=== PATIENT | female | born 2000 | race Hispanic/Latino ===

== ENCOUNTER 2021-08-31 23:00 | Emergency (ER) | payer OTHER ==
[~2021-08-31] VITALS: Ht 152.4 cm; Wt 73.0 kg
[2021-08-31] MEDS ORDERED: HUMIRA40 MG/0.4 IM (23:22)
[2021-08-31] MEDS ORDERED: MULTI VIT PO (23:22)
[2021-08-31] MEDS ORDERED: FLEXERIL5 M1 PO (23:25)
[2021-08-31] MEDS ORDERED: ULTRAM50 MG PO (23:25)
[2021-08-31 23:45] VITALS: BP 99/53
== END 2021-08-31 23:45 | disposition home or self-care (01) ==
LOC: ED 23:00
DX: M54.31 Sciatica, right side (principal); K51.90 Ulcerative colitis, unspecified, without complications; Z86.16 Personal history of COVID-19